=== PATIENT | female | born 1990 | race Caucasian/White ===

== ENCOUNTER 2018-08-27 11:46 | Inpatient (IN) | payer BC ==
[2018-08-27] MEDS ORDERED: OXYTOCIN/RINGERS LACTATE 1,000 ML IV PRN (12:20)
[2018-08-27] MEDS ORDERED: TERBUTALINE SULFATE 1 MG/ML VIAL IV PRN (12:20)
[2018-08-27] MEDS ORDERED: IBUPROFEN 600 MG TAB PO PRN (12:20)
[2018-08-27] MEDS ORDERED: LIDOCAINE 1% 300 MG/30 ML SDV SC PRN (12:20)
[2018-08-27] MEDS ORDERED: OLIVE OIL 118 ML BTL MISC PRN (12:20)
[2018-08-27] MEDS ORDERED: LR 1,000 ML IV PRN (12:20)
[2018-08-27] MEDS ORDERED: MISOPROSTOL 200 MCG TAB PO PRN (12:20)
[2018-08-27] MEDS ORDERED: PENICILLIN G POTASSIUM 5,000,000 UNIT in D5W 150 ML IV ONE (12:20)
[2018-08-27] MEDS ORDERED: EPSOM SALT 454 GM TP PRN (12:20)
[2018-08-27] MEDS ORDERED: AMMONIA AROMATIC 1 EACH AMP IH PRN (12:20)
[2018-08-27 12:44] LABS: PLATELET COUNT 295 10^3/uL (150-400)
[2018-08-27] MEDS ORDERED: BUPIVACAINE 0.25% 10 ML SDV ONE (13:11)
[2018-08-27] MEDS ORDERED: fentaNYL 2MCG/ML/BUP 0.1% RTU 100 ML BAG EP ONE (13:11)
[2018-08-27] MEDS ORDERED: PHENYLEPHRINE HCL 100 MCG/ML SYR ONE (13:12)
[2018-08-27] MEDS ORDERED: fentaNYL 100 MCG/2 ML INJ ONE (13:12)
--- NOTE | 2018-08-27 13:15 | PREANESOB ---
Obstetric Pre-Anesthesia Info - General Info Proposed Procedure: ZAYRA : 2 Para: 1 - Info Status: Full Term Monitors: External FHR Pattern: Reassuring - Labor Status Cervical Dilation per last OB SVE: 4 PIH: No Indications for Labor Analgesia: Pain Control, Possible , Other (Specify ) (TOLAC) Labor Epidural: Proposed Anesthesia Allergies/Adverse Reactions: Allergy/AdvReac Type Severity Reaction Status Date / Time No Known Allergies Allergy Unverified 08/27/18 12:20 Visit Medications: Generic Name Dose Route Start Last Admin Trade Name Freq PRN Reason Stop Dose Admin Ammonia (Aromatic Spirit) 1 each 08/27/18 12:20 Ammonia Aromatic IH 09/06/18 12:19 ONCE PRN Fainting Lactated Ringer's 1,000 mls @ 0 mls/hr 08/27/18 12:20 Lr IV 08/28/18 12:19 PRN PRN SEE PROTOCOL CONDITIONS Protocol Per Protocol Oxytocin/Lactated Ringer's 1,000 mls @ 0 mls/hr 08/27/18 12:20 Pitocin 20 Units/Lr (Premix) IV PRN PRN Post bleeding As Directed Penicillin G Potassium 5,000, 160 mls @ 160 mls/hr 08/27/18 12:20 08/27/18 12 :52 000 unit/ Dextrose IV 08/27/18 13:19 160 mls ONCE ONE Administration Protocol Penicillin G Potassium 2,500, 155 mls @ 155 mls/hr 08/27/18 16:22 000 unit/ Dextrose IV 09/26/18 16:21 Q4H DEEDEE Protocol Ibuprofen 600 mg 08/27/18 12:20 Motrin PO ONCE PRN post , pain Lidocaine HCl 300 mg 08/27/18 12:20 Lidocaine Hcl 1% SC 02/23/19 12:19 ONCE PRN episiotomy Magnesium Sulfate 454 gm 08/27/18 12:20 Epsom Salt TP 02/23/19 12:19 Q1H PRN perineal discomfort Misoprostol 800 - 1,000 mcg 08/27/18 12:20 Cytotec PO 02/23/19 12:19 ONCE PRN Vaginal Atony/Bleeding [place] Oil 118 ml 08/27/18 12:20 Sweet Oil MISC 02/23/19 12:19 ONCE PRN perineal massage Terbutaline Sulfate 0.25 mg 08/27/18 12:20 Brethine IV 02/23/19 12:19 ONCE PRN Tachysystole Discontinued Medications Generic Name Dose Route Start Last Admin Trade Name Lilibeth PRN Reason Stop Dose Admin Bupivacaine HCl Confirm 08/27/18 13:11 Sensorcaine 0.25% Sdv Administered 08/27/18 13:12 Dose 10 ml .ROUTE .STK-MED ONE Fentanyl Confirm 08/27/18 13:12 Sublimaze Administered 08/27/18 13:13 Dose 100 mcg .ROUTE .STK-MED ONE Fentanyl/Bupivacaine HCl Confirm 08/27/18 13:11 Fentanyl/Bupivacaine/Ns 2 Mcg/Ml 0.1% (Premix Administered 08/27/18 13:12 Dose 100 ml EP .STK-MED ONE Phenylephrine HCl Confirm 08/27/18 13:12 Neosynephrine Administered 08/27/18 13:13 Dose 1,000 mcg .ROUTE .STK-MED ONE Labs: 08/27/18 12:25
--- NOTE | 2018-08-27 13:48 | PDGENHP ---
History and Physical History and Physical: Care: [facility] HPI: Yesenia Fonseca is a 28yo with IUP @ 40-3 weeks that presents to L&D with complaints of contractions since 0500. she reports increasing in frequency and intensity since 0700. She denies any LOF, VB. She reports +FM. EDC: 08/24/2018 which is based on LMP:11/17/17 which is known and consistent with Ultrasound at 12 weeks. Her is complicated by: prior PLTC, anemia, rubella nonimmune, asymptomatic bacteruria, IC, GBS+ Review of Systems: Constitutional: Denies any fever, chills, or fatigue HEENT: denies any visual changes, difficulty swallowing, hearing loss Cardiovascular: Denies any chest pain, palpitations, leg swelling Respiratory: denies any cough, wheezing, or shortness of breathe GI: Denies any nausea, vomiting, diarrhea, constipation : denies any dysuria, urgency, frequency, vaginal bleeding Musculoskeletal: denies any muscle or bone pain Skin: denies any rashes Neuro: denies any headache, seizures, lightheadedness, dizziness, or loss of consciousness Psychiatric: denies any depression, anxiety, or SI/HI thoughts HISTORY: Previous OB history: prior c/s - persistent OP/failed vacuum Past medical history: anemia, IC Past surgical history: c/s Social: Denies any alcohol, tobacco, or drug use. - [place]; son- Jose G Family history: Not relevant Medications: PNV, iron, vitamin D Allergies (list reaction): NKDA LABS: Rh: A+ ABS: Neg Rubella: Non-Immune HbsAg: NR HIV: NR VDRL: NR 1hr: 82 GC: Neg Chlamydia: Neg Pap: Normal GBS: + PHYSICAL EXAM: Constitutional: WN, A&Ox3 HEENT: normocephalic atraumatic, supple Skin: Warm, dry, intact Heart: RRR, no murmur Chest: CTA-B Abdomen: Soft, nontender, gravid SVE: 4-5/70/-3 (per RN) Extremities: no edema, negative homans sign Neuro: grossly normal Psych: normal affect assessment: FHT baseline 120 +accels, no decels, moderate variability Contractions: toco q 4-6min Assessment: * 28yo with IUP@ 40-3wks * active labor/TOLAC * GBS+ * cat 1 FHR tracing Plan: * Admit to L&D * ZAYRA per pt request * cont EFM * Dr Brannon aware/agrees with POC Today's visit was approximately 30 min, of which >50% of visit 20 min, was spent face to face with pt on direct counseling/coordination of care.
[2018-08-27] MEDS ORDERED: LR 500 ML IV SCH ×2 (14:00)
[2018-08-27] MEDS ORDERED: ONDANSETRON 4 MG/2 ML VIAL IVP PRN (14:00)
[2018-08-27] MEDS ORDERED: fentaNYL 2MCG/ML/BUP 0.1% RTU 100 ML EP SCH (14:00)
[2018-08-27] MEDS ORDERED: NALOXONE HCL 0.4 MG/ML INJ IVP PRN (14:00)
[2018-08-27] MEDS ORDERED: PHENYLEPHRINE HCL 100 MCG/ML SYR IVP PRN (14:00)
[2018-08-27] MEDS ORDERED: BUPIVACAINE 0.25% 30 ML SDV ONE (14:12)
--- NOTE | 2018-08-27 16:13 | OBPROG ---
Labor Progress Note Assessment/Plan: Assessment: AROM with double internals placed by Елена as I was first evaluating the patient. FHR at that time was Category 2 with non-repetitive late and variable decels. Over the next 20 minutes after AROM we began to see recurrent late decelerations. I evaluated the patient again with Елена, she was then felt to be complete and tried pushing immediately with good progress. The patient pushed over two subsequent contractions with good progress, but we were still seeing FHR dip to the 60-70s with pushing and although we did see return to good baseline between most contractions, ultimately we were not seeing a rise to previous baseline and I counseled the patient that we needed to try to affect delivery in the next 1-2 contractions or think about . Briefly discussed the options of vacuum and forceps. My last exam was complete , ROT, +3/5 station. I discussed with them that given the option of rotational forceps vs vacuum I'd recommend vacuum, verbal consent obtained. Ultimately, successful vacuum - see separate operative note. Subjective/Intrapartum Course: I was asked by Елена Brewer CNM to come evaluate Yesenia as she was starting to have some decelerations on her FHR strip. At the point I evaluated her she had an epidural in place and comfortable with that. She was most recently 8cm, 90% effaced and Елена was just in the process of AROM'ing and placing double internal monitors. Objective: 08/27/18 12:25 Patient ABO/Rh A POSITIVE 08/27/18 12:25 - SVE Dilation (cm): 8 Effacement (%): 90 Membranes: AROM Amniotic Fluid Color: Clear (Double internal monitors placed by Елена Brewer CNM) - Contraction Pattern Assessment Current Contraction Pattern: Regular - FHR Assessment Cheung FHR (bpm): 110 FHR Pattern Variability: Moderate FHR Category: 2 (Intermittent decels with some ctx's - Some late, some variable) - Procedures Non-surgical Procedures: Amniotomy, FSE, IUPC Oxytocin Orders Assessment - Pre-Induction/Augmentation Assessment Gestational Age: 40 week(s) and 3 day(s) ICD10 Worksheet Patient Problems: Problems Problem Status Onset Hx successful (vaginal after ), currently Acute Vacuum extraction, delivered, current hospitalization Acute
[2018-08-27] MEDS ORDERED: PENICILLIN G POTASSIUM 2,500,000 UNIT in D5W 150 ML IV SCH (16:22)
--- NOTE | 2018-08-27 16:28 | OBDEL ---
Info Type: Vaginal Presentation at Delivery: Vertex L&D Analgesia/Anesthesia Type: Epidural GBS+: Yes Intrapartum Medications: Discontinued Medications Generic Name Dose Route Start Last Admin Trade Name Lilibeth PRN Reason Stop Dose Admin Penicillin G Potassium 5,000, 160 mls @ 160 mls/hr 08/27/18 12:20 08/27/18 12 :52 000 unit/ Dextrose IV 08/27/18 13:19 160 mls ONCE ONE Administration Protocol - Hospital Course Intrapartum: I was asked by Елена Brewer CNM to come evaluate Yesenia as she was starting to have some decelerations on her FHR strip. At the point I evaluated her she had an epidural in place and comfortable with that. She was most recently 8cm, 90% effaced and Елена was just in the process of AROM'ing and placing double internal monitors. Indications for Delivery: Spontaneous Labor Vaginal Delivery - Delivery Provider Delivery Physician/PAULAM: Mitch Brannon (Елена Brewer assisting) - Labor and Delivery Onset of Contractions Date: 08/27/18 Onset of Contractions Time: 05:00 Onset of Contractions Type: Spontaneous Rupture of Membranes Date: 08/27/18 Rupture of Membranes Time: 15:25 Rupture of Membranes Type: Artificial Amniotic Fluid Color: Clear (Double internal monitors placed by Елена Brewer CNM) Dilation Complete Date: 08/27/18 Dilation Complete Time: 15:39 Placenta Delivery Date: 08/27/18 Placenta Delivery Time: 16:07 Total Hours of Labor: 11 Non-surgical Procedures: Amniotomy, FSE, IUPC Laceration: 2nd Degree Repair: 3-0, Vicryl Vaginal Sponge Count Correct: Yes Vaginal Needle Count Correct: Yes Vaginal Sweep Performed: Yes EBL: 400 Delivery Events: Other (Specify) (shoulder cordx2) Cord Gases: Cord Gases Cord Blood PCO2 20.3 mmHg (37-60) L 08/27/18 16:00 Cord Base Excess -14.9 mEq/L (-13.6--3.2) L 08/27/18 16:00 Cord ABG pH 7.08 (7.10-7.37) L 08/27/18 16:00 Cord VBG pH 7.13 (7.20-7.42) L 08/27/18 16:00 Operative Report - Delivery Cord Gases: Cord Gases Cord Blood PCO2 20.3 mmHg (37-60) L 08/27/18 16:00 Cord Base Excess -14.9 mEq/L (-13.6--3.2) L 08/27/18 16:00 Cord ABG pH 7.08 (7.10-7.37) L 08/27/18 16:00 Cord VBG pH 7.13 (7.20-7.42) L 08/27/18 16:00 Assissted Delivery Assisted Delivery Type: Vacuum Station: +2 Pop offs (Total): 0 Pulls (Total): 2 Assisted Delivery Comment: VAVD by Mitch Brannon for bradycardia [place] Data ISSA: 08/24/18 Gestational Age: 40 week(s) and 3 day(s) Cheung Delivery Date: 08/27/18 Delivery Time: 15:54 Sex of : Male Score (1 Min): 7 Score (5 Min): 8 ICD10 Worksheet Patient Problems: Problems Problem Status Onset GBS (group B Streptococcus carrier), +RV culture, currently Acute Hx successful (vaginal after ), currently Acute Second degree perineal laceration during delivery Acute , delivered Acute Vacuum extraction, delivered, current hospitalization Acute - ICD10 Problem Qualifiers (1) GBS (group B Streptococcus carrier), +RV culture, currently (2) Hx successful (vaginal after ), currently (3) Second degree perineal laceration during delivery (4) Vacuum extraction, delivered, current hospitalization
[2018-08-27] MEDS ORDERED: SIMETHICONE 80 MG TAB CHEW PO PRN (16:30)
[2018-08-27] MEDS ORDERED: oxyCODONE IR 5 MG TAB PO PRN (16:30)
[2018-08-27] MEDS ORDERED: HYDROCORTISONE 0.5% CREAM TP PRN (16:30)
--- NOTE | 2018-08-27 16:38 | OBPROG ---
Labor Progress Note Assessment/Plan: Assessment: [id number] with IUP@40-3wks active labor TOLAC GBS + cat 2 FHR tracing Plan: AROM/IUPC/FSE Dr Brannon called to BS to evaluate pt/ station for possible assist anticipate VD 08/27/18 16:34 Subjective/Intrapartum Course: 08/27/18 15:30 Pt comfortable with ZAYRA. Denies any pain. due to decelerations counseled pt on need for AROM/IUPC/FSE to have better assessment- pt agrees to placement of internal monitors. FOB @ BS and supportive. Dr Brannon aware and at BS. I was asked by Елена Brewer CNM to come evaluate Yesenia as she was starting to have some decelerations on her FHR strip. At the point I evaluated her she had an epidural in place and comfortable with that. She was most recently 8cm, 90% effaced and Елена was just in the process of AROM'ing and placing double internal monitors. Objective: 08/27/18 12:25 Patient ABO/Rh A POSITIVE 08/27/18 12:25 - SVE Dilation (cm): 8 Effacement (%): 100 Station: -1 Membranes: AROM Amniotic Fluid Color: Clear (Double internal monitors placed by Елена Brewer CNM) Dilation Complete Date: 08/27/18 Dilation Complete Time: 15:39 - Contraction Pattern Assessment Current Contraction Pattern: Regular - FHR Assessment Cheung FHR (bpm): 110 (decelerations noted) FHR Pattern Variability: Moderate FHR Category: 2 - Procedures Non-surgical Procedures: Amniotomy, FSE, IUPC Oxytocin Orders Assessment - Pre-Induction/Augmentation Assessment Gestational Age: 40 week(s) and 3 day(s) ICD10 Worksheet Patient Problems: Problems Problem Status Onset GBS (group B Streptococcus carrier), +RV culture, currently Acute Hx successful (vaginal after ), currently Acute Second degree perineal laceration during delivery Acute , delivered Acute Vacuum extraction, delivered, current hospitalization Acute
[2018-08-27] MEDS: IBUPROFEN 600 MG TAB PO PRN (18:18)
[2018-08-27] MEDS: ACETAMINOPHEN 325 MG TAB PO PRN (18:18)
--- NOTE | 2018-08-27 23:39 | POSTOPPROG ---
Post Op Note Date of Operation: 08/27/18 Surgeon: Mitch Brannon [employer] Supervisor: Елена Brewer CNM Anesthesia: Epidural Pre-op Diagnosis: intollerance of labor, Occiput transverse position , TOLAC Post-op Diagnosis: Same, VAVD Indication: intollerance of labor, Occiput transverse position, TOLAC Procedure: Vacuum-assisted vaginal delivery Findings: OT restituting to OA, cord at shoulders, vigorous baby boy, Apgars 7 and 8 Inf/Abcess present in the surg proc area at time of surgery?: No Complications: None Specimen(s): Cord blood gasses sent Assissted Delivery Assisted Delivery Type: Vacuum Station: +3 Pop offs (Total): 0 Pulls (Total): 2 Assisted Delivery Comment: See prior labor note regarding evaluation and assessment. Briefly, this patient was completely dilated with double internal monitors when she developed recurrent late decelerations not responding/resolving with position changes and supplemental O2. The patient was instructed to try to push to see if we could achieve vaginal delivery before needing to perform a . She made good progress with two spontaneous pushes, but HR tracing was category 3 without good improvement between pushes thus I counseled the patient that we should attempt a vacuum assisted delivery. Verbal consent obtained prior to procedure due to emergent nature. Exam prior to procedure: Completely dilated, +3/5 station, LOT position with some rotation to MARCELL with pushing effort. Procedure: A hernández catheter was in place and this was removed just prior to VAVD attempt. Between contractions the hand-held rigid cup vacuum was placed on the point-of- flexion and care was taken to ensure to maternal tissue was trapped between head and device. A total of 2 pulls were used over 2 contractions, with no pop-offs. Good progress with first push/pull, and with second the vertex was brought to and the vacuum was removed. Head delivered in a semi-controlled fashion, restituting to OA ultimately. Body/shoulder cord identified, delivered through. Baby boy vigorous and crying at , up to mom's chest. Evaluated by RN/Peds staff immediately, but no need to immediately intervention. Delayed cord clamping of 5 minutes ultimately, then cord clamped and cut, cord gasses sent. I inspected the perineum with Елена Brewer CNM and we both observed that she had a 2nd degree laceration down to the external anal sphincter, but not disrupting it. I left the room at this point as Елена was comfortable completing that repair. Mom and baby doing well in room together when I exited.
[2018-08-28] MEDS: ACETAMINOPHEN 325 MG TAB PO PRN ×4 (00:19→18:58)
[2018-08-28] MEDS: IBUPROFEN 600 MG TAB PO PRN ×4 (00:19→18:58)
--- NOTE | 2018-08-28 11:33 | OBPP ---
Progress Note Assessment/Plan: Assessment: [id number] s/p VAVD PPD#1 Plan: Routine PP care bladder training- pt should attempt to void q 2hrs or PRN support PRN ambulate/sitz baths anticipate d/c home tomorrow Subjective/ Course: 08/28/18 11:31 Pt doing well, she denies any pain. states her rectum is sore but overall feels good. Very happy with , even with use of vacuum. Throughout the night her fundus was 5 above U and deviated to her right. After bladder scan was performed she was noted to have approx 800mL post void residual. Once patient was able to void completely fundal height was at U and firm. Bleeding minimal, she did pass a large clot this morning. She is - which is going well. FOB @ BS and supportive. Objective: 08/27/18 12:25 Patient ABO/Rh A POSITIVE 08/27/18 12:25 Temp Pulse Resp BP Pulse Ox 37.1 C 69 14 101/61 97 08/28/18 08:54 08/28/18 08:54 08/28/18 08:54 08/28/18 08:54 08/28/18 08:54 Uterine Position/Fundal Height: At Umbilicus, Midline Uterine Tone: Firm
[2018-08-28] MEDS: DOCUSATE SODIUM 100 MG CAP PO PRN (12:30)
--- NOTE | 2018-08-28 14:08 | POSTANESTH ---
Post Anesthetic Evaluation Cardiovascular Status: Normal, Stable Respiratory Status: Normal, Stable Level of Consciousness/Mental Status: Can Participate in Eval Pain Control: Adequate, Prn Tx Ordered Nausea/Vomiting Control: Adequate, Prn Tx Ordered Complications Possibly Related to Anesthesia: None Noted (Pt doing well s/p ZAYRA for delivery. No residual block, no headache. Pt satisfied with epidural labor pain control.)
[2018-08-28] MEDS ORDERED: EPSOM SALT 454 GM TP ONE (16:34)
[2018-08-29] MEDS: IBUPROFEN 600 MG TAB PO PRN ×2 (01:05→09:21)
[2018-08-29] MEDS: ACETAMINOPHEN 325 MG TAB PO PRN ×2 (01:06→09:19)
--- NOTE | 2018-08-29 08:24 | OBGCSDC ---
General Delivery Information - General Info : 2 Para: 2 Abortions: 0 Type: Vaginal L&D Analgesia/Anesthesia Type: Epidural Admission Date: 08/27/18 Labs: Patient ABO/Rh A POSITIVE 08/27/18 12:25 Hct 40.6 % (38.0-47.0) 08/27/18 12:25 - Hospital Course Intrapartum: I was asked by Елена Brewer CNM to come evaluate Yesenia as she was starting to have some decelerations on her FHR strip. At the point I evaluated her she had an epidural in place and comfortable with that. She was most recently 8cm, 90% effaced and Елена was just in the process of AROM'ing and placing double internal monitors. : 08/28/18 11:31 Pt doing well, she denies any pain. states her rectum is sore but overall feels good. Very happy with , even with use of vacuum. Throughout the night her fundus was 5 above U and deviated to her right. After bladder scan was performed she was noted to have approx 800mL post void residual. Once patient was able to void completely fundal height was at U and firm. Bleeding minimal, she did pass a large clot this morning. She is - which is going well. FOB @ BS and supportive. 08/29/18 08:22 No c/o. Pain well controlled, voiding well. Breast feeding well. Ready to d/c today after peds evaluates baby. Bleeding well controlled. Vaginal - Delivery Provider Delivery Physician/CNM: Mitch Brannon (Елена Brewer assisting) - Diagnosis Labor: Spontaneous Rupture of Membranes Type: Artificial Amniotic Fluid Color: Clear (Double internal monitors placed by Елена Brewer CNM) Laceration: 2nd Degree Repair: 3-0, Vicryl Delivery Events: Other (Specify) (shoulder cordx2) - Procedures Assisted Delivery Type: Vacuum Non-surgical Procedures: Amniotomy, FSE, IUPC - Delivery Providers Surgeon: Mitch Brannon - Delivery Non-surgical Procedures: Amniotomy, FSE, IUPC EBL: 400 Data ISSA: 08/24/18 Gestational Age: 40 week(s) and 5 day(s) Cheung Delivery Date: 08/27/18 Delivery Time: 15:54 Sex of : Male Weight (gm): 3033.399 g Score (1 Min): 7 Score (5 Min): 9 Discharge Information - Discharge Information Prescriptions: Ibuprofen [Motrin (*)] 600 mg PO Q6HRS PRN #60 tab PRN Reason: Pain, Mild Able To Take Po Condition: Good Instruction/Follow Up: Two Weeks, Four Weeks, Six Weeks
[2018-08-29] MEDS: DOCUSATE SODIUM 100 MG CAP PO PRN (09:22)
[2018-08-29 09:55] VITALS: BP 121/70
[2018-08-29] MEDS ORDERED: MEASLES,MUMPS&RUBELLA VACC/PF 0.5 ML VIAL SC ONE (11:30)
== END 2018-08-29 12:00 | disposition home or self-care (01) | DRG 807 ==
LOC: FLD 11:46 → FOB 19:51
PROVIDERS: ADMIT Advanced Practice Midwife; ATTEND Obstetrics & Gynecology
PROC: 4A1H7CZ Monitoring of Products of Conception, Cardiac Rate, Via Natural or Artificial Opening (ICD-10-PCS; principal; 2018-08-27)
PROC: 10D07Z6 Extraction of Products of Conception, Vacuum, Via Natural or Artificial Opening (ICD-10-PCS; principal; 2018-08-27)
PROC: 10H073Z Insertion of Monitoring Electrode into Products of Conception, Via Natural or Artificial Opening (ICD-10-PCS; principal; 2018-08-27)
DX: O34.211 Maternal care for low transverse scar from previous cesarean delivery (principal); O76 Abnormality in fetal heart rate and rhythm complicating labor and delivery; O70.1 Second degree perineal laceration during delivery; O32.2XX0 Maternal care for transverse and oblique lie, not applicable or unspecified; O69.82X0 Labor and delivery complicated by other cord entanglement, without compression, not applicable or unspecified; O99.824 Streptococcus B carrier state complicating childbirth; Z3A.40 40 weeks gestation of pregnancy; Z37.0 Single live birth
CPT/HCPCS: J2370; J2540; J2590; J3010